=== PATIENT | female | born 1990 | race Asian ===

== ENCOUNTER 2018-09-24 13:45 | Inpatient (IN) | payer OTHER ==
[~2018-09-24] VITALS: Ht 152.5 cm; Wt 75.9 kg
[2018-09-24] VITALS (30 sets, daily range): BP systolic 95–130; BP diastolic 53–80; PULSE 64–94; TEMP 99–99.3
--- NOTE | 2018-09-24 13:45 | NUR ---
1345- Pt arrives on unit ambulatory with complaints of SROM at 1315, states clear fluid. Pt into bathroom, changes into gown, voids. 1347- Pt into bed, EFM and TOCO on and tracing. 1350- SVE by this RN, amniotrace positive. Plan of care explained, Pt and verbalize understanding. Assessment completed. VSS.
[2018-09-24] MEDS ORDERED: CONCEPT DHA1 CAP PO (14:14)
--- NOTE | 2018-09-24 14:30 | NUR ---
1420- Intermittent, subtle late decelerations noted. Pt repositioned. 1425- IV started, fluid bolus initiated. FHR decels resolved and accelerations noted.
[2018-09-24 14:56] LABS: BASO % 0.4 % (0.0-2.0); EOS # 0.2 (0.0-0.7); EOS % 2.4 % (0-4.0); GRAN # 5.6 (1.4-6.5); GRAN % 66.4 % (42.2-75.2); HEMOGLOBIN 13.3 g/dl (12.5-16.0); LYMPH # 1.8 (1.2-3.4); LYMPH % 20.8 % (20.0-51.0); MEAN CELL VOLUME 91 fl (80.0-100.0); MEAN CORPUSCULAR HEMOGLOBIN 31 pg (27.0-31.0); MEAN CORPUSCULAR HGB CONC 34 g/dl (33.0-37.0); MEAN PLATELET VOLUME 10.8 fl (7.4-10.4); MONO # 0.8 (0.1-0.6); MONO % 9.6 % (1.7-9.3); PLATELET COUNT 224 K/mm3 (130-400); RED BLOOD COUNT 4.27 M/mm3 (4.10-5.30); REDCELL DISTRIBUTION WIDTH-CV 13.9 % (11.5-14.5)
--- NOTE | 2018-09-24 15:00 | NUR ---
1448-IV to saline lock. EFM and TOCO off. Pt up to bathroom, voids, Peripad and underwear on. Pt up to ambulate in hallway. 1455- Pt back into room, states water is running down her legs. Pt given option to change pads or return to bed. Pt wants to return to bed. EFM and TOCO on and tracing.
--- NOTE | 2018-09-24 16:12 | NUR ---
1612- EFM and TOCO off. Pt up to void, asks if able to walk in hallway. Given Peripad and underwear, advised to remain on unit. Pt verbalizes understanding.
--- NOTE | 2018-09-24 19:30 | NUR ---
SVE as noted, pt requesting epidural, LR to bolus rate. up to bathroom.
--- NOTE | 2018-09-24 21:29 | NUR ---
HER[employer] into room for epidural placement. Pt moved to sitting on edge of bed. See anesthesia reord for placement and dosing information. EFM tracing maternal heart rate unless nurse holds monitor in place.
--- NOTE | 2018-09-24 23:50 | NUR ---
Ephedrine 10mg IV
[2018-09-25] VITALS (51 sets, daily range): BP systolic 105–135; BP diastolic 56–96; PULSE 77–120; TEMP 97.3–99.9
--- NOTE | 2018-09-25 02:55 | NUR ---
FHT's with acceleration to 170's before ctx then to 140's-130's with contraction. FHR continnues 120's to 140's x 3 min before returning to baseline 150's.
--- NOTE | 2018-09-25 05:00 | NUR ---
SVE as noted. To semi-fowlers after exam, FHT's to 110's with contraction and position change, back to baseline of 140's in 1 minute.
--- NOTE | 2018-09-25 06:15 | NUR ---
BEDSIDE REPORT FROM GUS WRIGHT AT THIS TIME. ASSUMED CARE AT THIS TIME. PATIENT RESTING IN BED
--- NOTE | 2018-09-25 08:20 | NUR ---
DR AMEZQUITA RECOMMENDED A C/S AT THIS TIME. PATIENT REFUED. DR AMEZQUITA CONTINUED TO PUSH WITH PATIENT. 0838- DR AMEZQUITA RECCOMENDED A C/S AGAIN, PATIENT AGREED. PATIENT MONS PUBIS SHAVED, MOHAN PLACED. HUBAND TO OR WITH US 0845- PATIENT OFF EFM, BED WHEELED TO OPERATING ROOM AT THIS TIME.
[2018-09-26 01:19] VITALS: BP 94/59; PULSE 68; TEMP 97.5
[2018-09-26 05:47] VITALS: BP 98/58; PULSE 76; TEMP 97.9
[2018-09-26 07:20] VITALS: BP 115/68; PULSE 75; TEMP 97.5
--- NOTE | 2018-09-26 11:08 | NUR ---
Congratulated the patient on behalf of Cristel Carrasquillo.
[2018-09-26 16:20] VITALS: BP 109/70; PULSE 74; TEMP 98
[2018-09-26 20:30] VITALS: BP 103/58; PULSE 73; TEMP 98
[2018-09-27 07:09] VITALS: BP 129/72; PULSE 81; TEMP 97.3
[2018-09-27 16:11] VITALS: BP 110/65; PULSE 82; TEMP 98.8
[2018-09-28 08:20] VITALS: BP 117/83; PULSE 78; TEMP 98
[2018-09-28] MEDS ORDERED: IBU600 MG PO (08:32)
[2018-09-28] MEDS ORDERED: PERCOCET 325 MG1 TA2 PO (08:32)
== END 2018-09-28 11:30 | disposition home or self-care (01) | DRG 788 ==
LOC: LDRO 13:45 → LDR 14:08 → OB 14:08
PROVIDERS: Obstetrics & Gynecology; ADMIT Obstetrics & Gynecology
PROC: 10D00Z1 Extraction of Products of Conception, Low, Open Approach (ICD-10-PCS; principal; 2018-09-25)
DX: O42.92 Full-term premature rupture of membranes, unspecified as to length of time between rupture and onset of labor (principal); O62.0 Primary inadequate contractions; O76 Abnormality in fetal heart rate and rhythm complicating labor and delivery; Z3A.38 38 weeks gestation of pregnancy; Z37.0 Single live birth
CPT/HCPCS: J0690; J1200; J1885; J2210; J2370; J2400; J2405; J2590; J3010; J7120